=== PATIENT | female | born 1945 | race Two or more races ===

== ENCOUNTER 2022-11-05 16:59 | Inpatient (IN) | payer OTHER ==
[~2022-11-05] VITALS: Ht 162.6 cm; Wt 80.7 kg
[2022-11-10] MEDS ORDERED: SYNTHROID50 MCG PO (10:27)
[2022-11-10] MEDS ORDERED: BREO ELLIPTA 21 EACH IH (10:27)
[2022-11-10] MEDS ORDERED: NORVASC2.5 M1 PO (10:27)
[2022-11-17] MEDS ORDERED: PERCOCET 5-3251 EACH PO (07:51)
[2022-11-17] MEDS ORDERED: DUI500 PO (07:51)
[2022-11-17] MEDS ORDERED: ELIQUIS2.5 MG PO (07:51)
== END 2022-11-18 18:42 | DRG 470 ==
LOC: SURG 11-16 06:00 → O/R 11-16 06:00 → SURG 11-16 09:30
PROVIDERS: ADMIT Orthopaedic Surgery; ATTEND Orthopaedic Surgery
PROC: 0SRC0J9 Replacement of Right Knee Joint with Synthetic Substitute, Cemented, Open Approach (ICD-10-PCS; principal; 2022-11-16 10:00)
DX: M17.11 Unilateral primary osteoarthritis, right knee (principal); I10 Essential (primary) hypertension; E03.9 Hypothyroidism, unspecified; Z96.651 Presence of right artificial knee joint; C50.919 Malignant neoplasm of unspecified site of unspecified female breast; Z20.822 Contact with and (suspected) exposure to COVID-19